=== PATIENT | male | born 2000 | race American Indian/Alaskan Native ===

== ENCOUNTER 2020-01-21 12:34 | Emergency (ER) | payer SELFPAY ==
[2020-01-21 12:43] VITALS: BP 140/72
--- NOTE | 2020-01-21 13:11 | XRay Report ---
CHEST 2 VIEWS INDICATION / CLINICAL INFORMATION: Chest Pain. COMPARISON: None available. FINDINGS: SUPPORT DEVICES: None. HEART / MEDIASTINUM: No significant abnormality. LUNGS / PLEURA: No significant pulmonary or pleural abnormality. No pneumothorax. ADDITIONAL FINDINGS: No significant additional findings. IMPRESSION: No significant abnormality Signer Name: Armando Bahena MD FACR Signed: 01/21/2020 1:06 PM Workstation Name: [id number]
== END 2020-01-22 08:29 | disposition left against medical advice (07) ==
LOC: ED 12:34
DX: R07.9 Chest pain, unspecified (principal); Z53.21 Procedure and treatment not carried out due to patient leaving prior to being seen by health care provider
CPT/HCPCS: 71046; 93005